=== PATIENT | female | born 1975 | race Hispanic/Latino ===

== ENCOUNTER 2017-10-12 16:34 | Observation (INO) | payer OTHER ==
[~2017-10-12] VITALS: Ht 165.1 cm; Wt 60.4 kg
[2017-10-12 17:52] LABS: HEMATOCRIT 39.4 % (36.0-46.0); HEMOGLOBIN 13.8 G/DL (11.9-15.5); MCH 31.9 PG (29.0-34.0); MCV 91.2 FL (83-99); PLATELET COUNT 258 K/uL (156-360); RBC DIS.WIDTH-CV 12.1 % (11.8-14.6); RED BLOOD COUNT 4.32 M/uL (3.80-5.20); WHITE BLOOD COUNT 6.2 K/uL (4.1-10.2)
[2017-10-12 18:00] LABS: D-DIMER ELISA < 150.00 ng/mLDDU (<230)
[2017-10-12 18:07] LABS: CHLORIDE 99 mEq/L (99-109); SODIUM 135 mEq/L (136-147)
[2017-10-12 18:08] LABS: GLUCOSE 112 mg/dL (70-99)
[2017-10-12 18:12] LABS: CREATININE 0.8 mg/dL (0.6-1.3)
[2017-10-12 18:13] LABS: GFR ESTIMATE (CALCULATED) > 59 mL/min/; TROP-I INTERPRETATION NEGATIVE; TROPONIN-I < 0.01 ng/mL (0.0-0.30); UREA NITROGEN (BUN) 14 mg/dL (9-23)
[2017-10-12 18:20] LABS: QUANTITATIVE HCG < 4.0 MIU/ML
[2017-10-12] MEDS ORDERED: FOLIC ACID0.4 MG PO (19:41)
[2017-10-12] MEDS ORDERED: CETIRIZINE HCL10 M2 PO (19:42)
[2017-10-12] MEDS ORDERED: CLONIDINE1 EACH TD (19:43)
[2017-10-12] MEDS ORDERED: MONTELUKAST SOD10 MG PO (19:43)
[2017-10-12] MEDS ORDERED: LINZESS145 MCG PO (19:44)
[2017-10-12] MEDS ORDERED: FLONASE16 G1 BOTH NARES (19:44)
[2017-10-12] MEDS ORDERED: TRAMADOL HCL50 MG PO (19:45)
[2017-10-12] MEDS ORDERED: PANTOPRAZOLE SO40 MG PO (19:46)
[2017-10-12] MEDS ORDERED: PROMETHAZINE12.5 MG PR (19:47)
[2017-10-12] MEDS ORDERED: ONDANSETRON HCL4 MG PO (19:48)
[2017-10-12] MEDS ORDERED: EPIPEN ADU0.3 MG/0.3 IM (19:49)
[2017-10-12] MEDS ORDERED: CYCLOBENZAPRINE10 MG PO (19:49)
[2017-10-12] MEDS ORDERED: SUMATRIPTAN SU100 MG PO (19:50)
[2017-10-12] MEDS ORDERED: EDARBYCLOR 40-1 EACH PO (19:51)
[2017-10-12 21:39] LABS: TROP-I INTERPRETATION NEGATIVE; TROPONIN-I < 0.01 ng/mL (0.0-0.30)
[2017-10-12 22:06] VITALS: BP 111/70
[2017-10-12 23:47] LABS: APPEARANCE CLEAR ((CLEAR)); BILIRUBIN NEGATIVE; BLOOD SMALL; COLOR YELLOW ((YELLOW)); GLUCOSE (STRIP) NEGATIVE; KETONES 5; LEUKOCYTES NEGATIVE; NITRITE NEGATIVE; PROTEIN (STRIP) NEGATIVE; SPECIFIC GRAVITY 1.018 (1.000-1.030)
[2017-10-12 23:50] LABS: BACTERIA RARE /HPF; EPITHELIAL CELLS 1+ /HPF; MUCUS TRACE /LPF; RED BLOOD CELLS 0-5 /HPF (0-5); WHITE BLOOD CELLS 0-5 /HPF (0-5)
[2017-10-13 01:00] LABS: TROP-I INTERPRETATION NEGATIVE; TROPONIN-I < 0.01 ng/mL (0.0-0.30)
[2017-10-13 04:33] VITALS: BP 113/58
[2017-10-13 08:40] VITALS: BP 113/74
[2017-10-13 11:38] VITALS: BP 117/76
== END 2017-10-13 12:15 | disposition home or self-care (01) ==
LOC: EME 16:34 → 5WEST 19:33 → EDOF 19:33 → ENRESERV 19:39 → 5WEST 21:54
PROVIDERS: Emergency Medicine; Hospitalist
DX: R07.9 Chest pain, unspecified (principal); E86.0 Dehydration; Q07.00 Arnold-Chiari syndrome without spina bifida or hydrocephalus; I10 Essential (primary) hypertension; G43.909 Migraine, unspecified, not intractable, without status migrainosus; Z87.442 Personal history of urinary calculi; J45.909 Unspecified asthma, uncomplicated; G89.29 Other chronic pain; K59.00 Constipation, unspecified; Z88.6 Allergy status to analgesic agent; Z88.1 Allergy status to other antibiotic agents; Z88.0 Allergy status to penicillin; Z82.49 Family history of ischemic heart disease and other diseases of the circulatory system; Z83.3 Family history of diabetes mellitus
CPT/HCPCS: 71020; 80048; 81003; 84484; 84702; 85027; 85379; 93005; 99281; 99285; G0378; J2270; J2405; J7030